=== PATIENT | male | born 1960 | race Caucasian/White ===

== ENCOUNTER 2021-05-12 20:49 | Inpatient (IN) | payer OTHER ==
[~2021-05-12] VITALS: Ht 177.8 cm; Wt 136.5 kg
[~2021-05-12 20:49] MED LIST: CEPHALEXIN 500500 M2 PO; COZAAR PO; FLEXERIL PO; GLUCOPHAGE1000 MG PO; GLYBURIDE 5 MG T5 M1 PO; HYDROCHLOROTHIA25 M1 PO; K-DUR 20 MEQ T20 MEQ PO; LANTUS SQ; LIPITOR10 MG PO; LOPRESSOR100 MG PO; NOVOLOG100 UNIT/1 SQ; VICODIN 5-5001 EACH PO; ZANTAC 150MG T150 M1 PO
[2021-05-13 03:22] LABS: HEMATOCRIT 37.3 % (42.0-52.0); HEMOGLOBIN 12.1 gm/dL (14.0-18.0); MCHC 32.4 g/dL (28.0-37.0); MCV 89.6 fL (80.0-100.0); RBC 4.16 mil/uL (4.50-6.00); RDW 14.4 % (10.5-14.5)
[2021-05-13 04:00] VITALS: BP 123/57
--- NOTE | 2021-05-13 04:36 | NUR ---
ADMITTED THIS PATIENTAROUND FROM [facility].PATIENT IS ALERT AND ORIENTED X4.ON ROOM AIR BREATHING SPONTANEOUSLY.EKG AND TORPONIN DONE.INFORMED DR. SCHMIDT OF THIS ADMISSION, RELAYED EKG AND TROPONIN.RELAYED TO DR. SCHMIDT ALL THE MEDICATIONS THAT PATIENT IS CURRENTLY TAKING.ADMISSION COMPLETED.ALL NEEDS ATTENDED.TO CONTINOUSLY MONITOR.
[2021-05-13 04:40] LABS: CALCIUM 8.5 mg/dL (8.5-10.1); CREATININE 1.2 mg/dL (0.7-1.3); POTASSIUM 3.8 mmol/L (3.5-5.1); TOTAL BILIRUBIN 0.6 mg/dL (0.2-1.0); TOTAL PROTEIN 6.4 g/dL (6.4-8.2)
[2021-05-13 07:10] VITALS: BP 127/80
--- NOTE | 2021-05-13 08:03 | EKG ---
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1960 Requested By: Adin Hartley Order Number: [id number] MD: Chuck Howard Measurements Intervals [place] Rate: 83 P: MA: QRS: 42 QRSD: 111 T: -65 QT: 416 QTc: 489 Interpretive Statements Atrial fibrillation Abnormal R-wave progression, late transition Inferior infarct, age indeterminate No previous ECG available for comparison Electronically Signed On 05-13-2021 8:02:45 TUBE MAKING MACHINE OPERATOR by Chuck Howard [email or web address] <ELECTRONICALLY SIGNED> By: Chuck Howard MD, [facility] 05/13/21801 2137 Chuck Howard MD, FAC /EPI
--- NOTE | 2021-05-13 08:06 | EKG ---
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 : 1960 Requested By: Adin Hartley Order Number: [id number] MD: Chuck Howard Measurements Intervals [place] Rate: 81 P: [place]: QRS: 50 QRSD: 106 T: -70 QT: 425 QTc: 494 Interpretive Statements Atrial fibrillation Probable inferior infarct, age indeterminate Lateral leads are also involved No previous ECG available for comparison Electronically Signed On 05-13-2021 8:05:54 AREA COORDINATOR by Chuck Howard [email or web address] <ELECTRONICALLY SIGNED> By: Chuck Howard MD, [facility] 05/13/21 0805 0734 0734 Chuck Howard MD, FACC /EPI
[2021-05-13 11:00] VITALS: BP 139/81
--- NOTE | 2021-05-13 11:27 | 2DMMODE ---
[facility] [place] [address] 2 D/M-MODE ECHOCARDIOGRAM Name: BELLO CORONA Room #: 210-P ADM IN M.R.#: [id number] Admission: 05/12/21 Attend Phys: Adin Hartley MD, Discharge: Date of : 62 Report #: [id number] THIS REPORT FOR: cc: [facility] - Clinic physician unknown [facility] - Clinic physician unknown Rufino Perera MD [facility] ~ APPROVED REPORT Study performed: 05/13/2021 10:35:22 EXAM: Comprehensive 2D, Doppler, and color-flow Echocardiogram Patient Location: Bedside Room #: 210 Status: routine BSA: 2.48 HR: 80 bpm BP: 127/80 mmHg Rhythm: Atrial Fibrillation Other Information Study Quality: Adequate Indications Diabetes Atrial Fibrillation Non STEMI Dyspnea Chest Pain Hypertension/HDD 2D Dimensions RVDd: 41.22 mm IVSd: 8.97 (7-11mm) LVOT Diam: 20.06 (18-24mm) LVDd: 53.66 mm PWd: 9.13 (7-11mm) Ascending Ao: 33.38 (22-36mm) LVDs: 35.68 (25-40mm) Left Atrium: 42.68 (27-40mm) Aortic Root: 30.06 mm IVC: 24.00 mm Volumes Left Atrial Volume (Systole) Single Plane 4CH: 65.75 mL Single Plane 2CH: 33.43 mL LA ESV Index: 21.00 mL/m2 [facility] [address] [place] [address] 2 D/M-MODE ECHOCARDIOGRAM Name: BELLO CORONA Room #: 210-P ADM IN M.R.#: [id number] Admission: 05/12/21 Attend Phys: Adin Hartley, Discharge: Date of : 62 Report #: [id number] Aortic Valve AoV Peak Paco.: 1.46 m/s AO Peak Gr.: 8.49 mmHg LVOT Max P.47 mmHg LVOT Max V: 1.06 m/s ZAHRAA Vmax: 2.29 cm2 Pulmonary Valve PV Peak Paco.: 0.76 m/s PV Peak Gr.: 2.30 mmHg Tricuspid Valve TR Peak Paco.: 2.38 m/s TR Peak Gr.: 22.57 mmHg PA Pressure: 38.00 mmHg Left Ventricle The left ventricle is normal size. There is normal LV segmental wall motion. There is normal left ventricular wall thickness. The left ventricular systolic function is normal. The left ventricular ejection fraction is within the normal range. LVEF is 50-55%. This study is not technically sufficient to allow evaluation of the LV diastolic function due to atrial fibrillation. Right Ventricle The right ventricle is normal size. The right ventricular systolic function is normal. Atria The left atrium size is normal. Right atrium is at the upper limits of normal. Aortic Valve The aortic valve is normal in structure. No aortic regurgitation is present. There is no aortic valvular stenosis. Mitral Valve The mitral valve is normal in structure. Trace mitral regurgitation. No evidence of mitral valve stenosis. Tricuspid Valve The tricuspid valve is normal in structure. There is trace tricuspid regurgitation. Estimated PAP 38 mmHg. There is mild pulmonary hypertension. Pulmonic Valve The pulmonary valve is normal in structure. There is no pulmonic valvular regurgitation. [facility] [address] [place] [address] 2 D/M-MODE ECHOCARDIOGRAM Name: CJBELLO JAROD Room #: 210-P ADM IN M.R.#: [id number] Admission: 05/12/21 Attend Phys: Adin Hartley, Discharge: Date of : 62 Report #: [id number] Great Vessels The aortic root is normal in size. The inferior vena cava is dilated with no inspiratory collapse. Pericardium There is no pericardial effusion. <Conclusion> Normal left ventricle size/wall thickness Ejection fraction 55% Normal right ventricle size/function Normal atrial size Normal aortic/mitral valve structure and function Trace tricuspid valve insufficiency Pulmonary systolic pressure estimated 38 mmHg No pericardial effusion Normal aortic root size Study performed in atrial fibrillation <ELECTRONICALLY SIGNED> By: Rufino Perera MD, FACC 05/13/21 1126 1126 1126 Rufino Perera MD, FACC /INF
[2021-05-13 16:55] VITALS: BP 145/80
[2021-05-13 19:12] VITALS: BP 160/89
--- NOTE | 2021-05-13 19:52 | NUR ---
PT IS AXOX4, PLEASANT; VSS, AFEBRILE, AFIB ON THE MONITOR. DENIES PAIN, UP AD ATA TO TOILET, AMBULATE IN HALLWAY. PT TO HAVE CARDIAC CATH ON 05/14; CONSENT SIGNED IN CHART. POC IS TO CONTINUE TO MONITOR VSS, BLOOD SUGARS. LOW FALL PRECAUTIONS IN PLACE. NO CONCERNS AT THIS TIME.
[2021-05-14 01:06] LABS: GLYCOHEMOGLOBIN (HGB A1C) 12.7 % (4.8-5.6)
[2021-05-14 04:09] VITALS: BP 126/75
[2021-05-14 05:54] LABS: CREATININE 1.1 mg/dL (0.7-1.3); POTASSIUM 3.5 mmol/L (3.5-5.1)
[2021-05-14 08:51] VITALS: BP 159/82
[2021-05-14] MEDS ORDERED: TOPROL XL50 MG PO (11:59)
[2021-05-14] MEDS ORDERED: BENICAR40 MG PO (11:59)
[2021-05-14] MEDS ORDERED: EFFIENT10 MG PO (11:59)
[2021-05-14] MEDS ORDERED: CRESTOR20 MG PO (12:00)
--- NOTE | 2021-05-14 18:27 | NUR ---
ASSESSMENT CHARTED - MEDS PER SEP - ACCUCHECKS COVER PER SSI PRN. LANDON DIET AND FLUIDS. NO CO'S OF NAUSEA. PT TO THE PRODUCTION CHECKER THIS AM - VSS POST CATH SEE PAPER DOCUMENTAION IN SCANNED IMAGES. GROIN SITE C/D/I NO BLEEDING HEAMATOMMA. PT HAS BEEN OUT OF BED POST CATH GROIN SITE REMAINED STABLE. PT WITH NO CO'S OF PAIN. UP IN THE CHAIR AT THE MOMENT - AMBULATING WITH USE OF CANE. NO CO'S AT THE PRESENT TIME.
[2021-05-14 20:15] VITALS: BP 137/70
[2021-05-15 03:16] VITALS: BP 142/79
[2021-05-15 04:50] LABS: CALCIUM 8.6 mg/dL (8.5-10.1); CREATININE 1.1 mg/dL (0.7-1.3); POTASSIUM 3.4 mmol/L (3.5-5.1)
[2021-05-15 05:28] LABS: HEMATOCRIT 40.1 % (42.0-52.0); MCHC 32.5 g/dL (28.0-37.0); MCV 89.2 fL (80.0-100.0); RBC 4.49 mil/uL (4.50-6.00); RDW 14.4 % (10.5-14.5); WBC 5.8 thou/uL (4.0-11.0)
[2021-05-15] MEDS ORDERED: XARELTO20 MG PO (07:51)
--- NOTE | 2021-05-15 07:52 | NUR ---
PATIENTS CARES WHERE ASSUMED AT SHIFT CHANGE. PATIENT WAS ASSESSED AND MEDS WHERE PASSED. PATIENT IS HAPPY TO BE GOING HOME TODAY, ROUNDS WHERE MADE. PATIENT ACCU CHECK WAS 121 AND PATIENT DIRECTED HIS OWN DOSE. HE DID WANT 23 UNITS OF LANTUS NOT 46. PATIENT REFUSSED THE SLIDING SCALE.
--- NOTE | 2021-05-15 08:07 | EKG ---
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 : 1960 Requested By: Itzel Sylvester Order Number: [id number] MD: Chuck Howard Measurements Intervals [place] Rate: 83 P: ID: QRS: 46 QRSD: 107 T: -67 QT: 436 QTc: 513 Interpretive Statements Atrial fibrillation Probable inferior infarct, recent Lateral leads also involved Prolonged QT interval Compared to ECG 05/13/2021 07:34:36 Prolonged QT interval now present Electronically Signed On 05-15-2021 8:07:41 SAFETY LEADER by Chuck Howard [email or web address] <ELECTRONICALLY SIGNED> By: Chuck Howard MD, [facility] 05/15/21 0807 7 Chuck Howard MD, [facility] /EPI
[2021-05-15 08:43] VITALS: BP 146/73
[2021-05-15 08:44] VITALS: BP 135/60
[2021-05-15 11:42] VITALS: BP 146/73
[2021-05-15 12:05] VITALS: BP 149/69
--- NOTE | 2021-05-15 12:48 | NUR ---
ASSESMENTS AND MEDICATIONS COMPLETED. PATIENT WALKING UP AD ATA AROUND THE UNIT. DISCHARGE AM, INSTRUCTION GIVEN ON HOME MEDS, HOME CARE, AND FOLLOWUP. STATED UNDERSTANDING OF INSTRUCTIONS. PATIENT LEFT UNIT AMBULATORY, HOME BY PRIVATE VEHICHLE ACCOMPANIED BY BROTHER. CLASSIFIER TENDER AND IV REMOVED. NO COMPLAINTS OR QUESTIONS AT TIME OF D/C.
--- NOTE | 2021-05-15 16:59 | CATHLAB ---
[facility] [place] [address] INVASIVE PROCEDURE REPORT Name: BELLO CORONA Room #: 210-P DIS IN M.R.#: [id number] Admission: 05/12/21 Attend Phys: Adin Hartley MD, Discharge: 05/15/21 Date of : 62 Report #: [id number] THIS REPORT FOR: cc: [facility] - Clinic physician unknown [facility] - Clinic physician unknown Adin Hartley MD [facility] ~ APPROVED REPORT Study performed: 05/14/2021 08:47:09 Patient Details Patient Status: In-Patient Room #: The patient is a 61 year-old male Event Personnel Adin Hartley All Source Collection Manager, Amaris Smalls RTR Monitor, Lisbeth Basurto RTR, WINDOW SHADE CUTTER Scrub, Gema Corona RN rig superintendent Performed Art Access - R femoral artery* Left Heart Cath w/or w/o Coronaries [id number] [facility] w/wo Plasty Single RCA 519722 Aortogram Abdominal Peripheral Angio 520794 Hemostasis w/ Mynx 40704 Initial Mod Sed Same Phys/QHP Gr5y 767256 32356 Mod Sed Same Phys/QHP Ea 603659 Procedure Narrative The Right Groin^ was infiltrated with 1% Lidocaine subcutaneous anesthesia. A PINNACLE 6FR Sheath #[id number] sheath was inserted into the RFA^. Coronary angiography was performed using coronary diagnostic catheters. The right coronary system was accessed and visualized with a JR4 catheter. The left coronary system was accessed and visualized with a JL4 catheter. The left ventricle was accessed and visualized with a PIGTAIL catheter. Left ventriculogram was performed in 30 degree projection. An aortogram of the abdominal aorta was performed. Closure device was deployed with a Fr MYNXGRIP 6/7F #[id number]. The patient tolerated the procedure well and there were no complications associated with the procedure. There was no hematoma. Intraoperative Conscious Sedation Sedation start time: 9:22 Case end Time: 10:40 Fentanyl 100 mcg Versed 2 mg [facility] [place] [address] [place] [address] INVASIVE PROCEDURE REPORT Name: CJBELLO OLIVERA Room #: 210-P [facility] IN .R.#: [id number] Admission: 05/12/21 Attend Phys: Adin Hartley, Discharge: 05/15/21 Date of : 62 Report #: [id number] Fluoro Time: 19.70 minutes Dose: DAP 16793.50 cGycm2 4593 mGy Contrast Type and Amount: Omnipaque 240 ml Hemodynamics The aortic pressure is 134/78 mmHg with a mean of 97 mmHg. The left ventricular pressure is 143/9 mmHg with a mean of mmHg. The left ventricular end diastolic pressure is 22 mmHg. PCI Technique Lesion Percutaneous coronary intervention was performed on the mistal right coronary artery. A LAUNCHER 6FR JR 4 #[id number] Guide Catheter was used to engage the ostium. A Luge Wire .014 x 182CM #[id number] Interventional Guidewire was used to cross the lesion. BALLOON DILATION A Balloon catheter Sprinter OTW 2.5 x 12 #[id number] was inserted and inflated up to 6.00atm for 19seconds. Additional Inflation: 10.00atm for 17seconds. Additional Inflation: 10.00atm for 20seconds. Additional Inflation: 12 natividad for 11 seconds. Additional Inflation: 12 natividad for 13 seconds. Additional Inflation: 12 natividad for 20 seconds. Additional Inflation: 14 natividad for 12 seconds. Additional Inflation: 14 natividad for 8 seconds. Additional Inflation: 14 natividad for 9 seconds. STENT DEPLOYMENT A drug-eluting stent RESOLUTE JUAN MANUEL OTW 2.75 X 38 #[id number] was inserted and inflated up to 10.00atm for 23seconds. Additional Inflation: 16.00atm for 23seconds. A drug-eluting stent RESOLUTE JUAN MANUEL OTW 2.75 x 12 was inserted and inflated up to 10 natividad for 21 seconds. Additional Inflation: 16 natividad for 21 seconds. 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 Mid RCA lesion of 50 to 60% will follow. This vessel prior to intervention was partially filled via left to right collateralization #2 left main mildly disease giving rise to LAD and circumflex. #3 LAD with eccentric 5060% proximal and proximal mid vessel lesions with a 70% diagonal proximal segment otherwise preserved LAD around the apex and diagonal. #4 circumflex OM with an eccentric 50% lesion and then a mid vessel lesion of 50 to 60% moderate size OM widely patent distal OM widely patent. [facility] [address] [place] [address] INVASIVE PROCEDURE REPORT Name: BELLO CORONA Room #: 210-P DIS IN M.R.#: [id number] Admission: 05/12/21 Attend Phys: Adin Hartley, Discharge: 05/15/21 Date of : 62 Report #: [id number] #5 normal left ventricular size inferior base is severely hypokinetic EF 45% range #6 abdominal aortogram shows mild aortic ectasia no aneurysm. Recommendations and plan: Continue aggressive risk factor modification. Dual antiplatelet therapy has been initiated. Transferred to CCU to follow post coronary stent protocol. Complex intervention of this occluded RCA. Good final result expect some improvement in inferior wall hypokinesis. Timing of this occlusion is unknown but seems to be fairly recently with symptoms the last 4 to 6 months. <ELECTRONICALLY SIGNED> By: Adin Hartley MD, FACC 05/15/211658 58 58 Adin Hartley MD, FACC /INF
== END 2021-05-15 12:30 | disposition home or self-care (01) | DRG 246 ==
LOC: 2N 20:49
PROVIDERS: Nurse Practitioner Adult Health; ADMIT Internal Medicine Cardiovascular Disease; ATTEND Internal Medicine Cardiovascular Disease
DX: I21.4 Non-ST elevation (NSTEMI) myocardial infarction (principal); I50.33 Acute on chronic diastolic (congestive) heart failure; Z68.41 Body mass index [BMI] 40.0-44.9, adult; I48.91 Unspecified atrial fibrillation; I10 Essential (primary) hypertension; E78.00 Pure hypercholesterolemia, unspecified; K21.9 Gastro-esophageal reflux disease without esophagitis; I25.10 Atherosclerotic heart disease of native coronary artery without angina pectoris; M19.90 Unspecified osteoarthritis, unspecified site; E11.65 Type 2 diabetes mellitus with hyperglycemia; E66.9 Obesity, unspecified; Z79.899 Other long term (current) drug therapy; Z88.1 Allergy status to other antibiotic agents; Z85.72 Personal history of non-Hodgkin lymphomas; Z85.89 Personal history of malignant neoplasm of other organs and systems; Z92.21 Personal history of antineoplastic chemotherapy; Z92.3 Personal history of irradiation
CPT/HCPCS: 10081

== ENCOUNTER → 2021-06-15 | Outpatient (CLI) | payer OTHER ==
[~2021-06-15] MED LIST changes: +BENICAR40 MG PO; +CRESTOR20 MG PO; +EFFIENT10 MG PO; +TOPROL XL50 MG PO; +XARELTO20 MG PO
== END ==
LOC: SJCVC 11:09
PROVIDERS: ATTEND Internal Medicine Cardiovascular Disease
DX: R94.31 Abnormal electrocardiogram [ECG] [EKG] (principal); I48.91 Unspecified atrial fibrillation; I25.10 Atherosclerotic heart disease of native coronary artery without angina pectoris; I10 Essential (primary) hypertension; E78.00 Pure hypercholesterolemia, unspecified; K21.9 Gastro-esophageal reflux disease without esophagitis; E78.5 Hyperlipidemia, unspecified; E11.9 Type 2 diabetes mellitus without complications; Z95.5 Presence of coronary angioplasty implant and graft; Z88.1 Allergy status to other antibiotic agents; Z79.4 Long term (current) use of insulin; Z79.899 Other long term (current) drug therapy; Z82.49 Family history of ischemic heart disease and other diseases of the circulatory system; Z87.891 Personal history of nicotine dependence